=== PATIENT | female | born 1935 | race Caucasian/White ===

== ENCOUNTER 2021-02-08 13:25 | Emergency (ER) | payer OTHER ==
[~2021-02-08] VITALS: Ht 165.1 cm; Wt 68.0 kg
[~2021-02-08 13:25] MED LIST: AMBIEN CR12.5 MG PO; AMOX TR-K CLV1 EAC4 PO; ASA81BEC PO; CALTRATE-600 W1 EACH PO; HYDROCHLOROTH12.5 M1 PO; METOPROLOL SUC100 MG PO; NEURONTIN 300M300 M2 PO; PROTONIX40 M2 PO; REMERON 30 MG T30 M1 PO; TRAMADOL 50 MG50 MG PO; TRAZODONE HCL50 MG PO; VITAMIN B-121000 MC2 PO; VITAMIN B-650 M1 PO; WARFARIN SODIUM1 MG PO
[2021-02-08 15:30] VITALS: BP 0/0
== END 2021-02-08 13:30 ==
LOC: M.ERS 13:25
DX: I46.9 Cardiac arrest, cause unspecified (principal); I10 Essential (primary) hypertension; G62.9 Polyneuropathy, unspecified; Z85.3 Personal history of malignant neoplasm of breast; Z85.05 Personal history of malignant neoplasm of liver; Z96.651 Presence of right artificial knee joint; Z79.2 Long term (current) use of antibiotics; Z79.899 Other long term (current) drug therapy; Z79.82 Long term (current) use of aspirin